=== PATIENT | female | born 1955 | race Caucasian/White ===

== ENCOUNTER 2017-05-24 10:05 | Outpatient (CLI) | payer BC ==
[2017-05-24 12:29] LABS: #Eosinphils 0.1 thou/uL (0.0-0.7); #Lymphocytes 3.8 thou/uL (1.20-3.40); #Monocytes 0.5 thou/uL (0.11-0.59); #Neutrophils 4.5 thou/uL (1.40-6.50); %Basophils 0.4 % (0.0-1.0); %Eosinophils 1.5 % (0.0-10.0); %Lymphocytes 42.6 % (21.0-51.0); %Monocytes 5.5 % (0.0-10.0); Hematocrit 43.4 % (36.0-47.0); Mean Platelet Volume 6.3 fL (7.4-10.4); Red Blood Cell (RBC) Count 4.57 mill/uL (4.20-5.40)
[2017-05-24 12:31] LABS: Bilirubin Negative (Negative); Blood, Urine Negative (Negative); Glucose, Urine (Dipstick) Negative (Negative); Ketone, Urine Negative (Negative); Nitrite Negative (Negative); Protein, Urine (Dipstick) Negative (Neg-Trace); Urobilinogen 0.2 mg/dL (0.2-1.0)
[2017-05-24 12:34] LABS: Bacteria/HPF None Seen HPF (None Seen); Hyaline Casts/LPF 0-3 HYALINE CAST LPF (0-3 Hyaline); RBC/HPF 0-3 HPF (0-3); Squamous Epithelial 0-3 HPF (0-3); WBC/HPF 0-3 HPF (0-3)
--- NOTE | 2017-05-24 15:43 | RAD ---
PA AND LATERAL VIEWS OF CHEST: Date: 05/24/17 HISTORY: Preoperative evaluation. FINDINGS: Comparison made with exam of 05/25/07. The heart size is borderline. The lungs are well expanded without focal areas of consolidation, pneu mothorax, or pleural effusions. There are mild degenerative changes in the spine. IMPRESSION: No radiographic evidence of acute cardiopulmonary process. POS: JOHANH
--- NOTE | 2017-05-24 16:49 | EKG ---
Test Reason : Blood Pressure : / mmHG Vent. Rate : 059 BPM Atrial Rate : 059 BPM P-R Int : 162 ms QRS Dur : 084 ms QT Int : 384 ms P-R-T Axes : 040 024 040 degrees QTc Int : 380 ms Sinus bradycardia Possible Anterior infarct , age undetermined Abnormal ECG No previous ECGs available Confirmed by DR. Anastasia GUPTA ([id number]) on 05/24/2017 4:49:31 PM Referred By: NEERU Confirmed By:DR. Anastasia GUPTA
== END 2017-05-24 10:06 | disposition home or self-care (01) ==
LOC: LABBT 10:05
PROVIDERS: ATTEND Orthopaedic Surgery Hand Surgery
DX: Z01.818 Encounter for other preprocedural examination (principal); M65.9 Synovitis and tenosynovitis, unspecified; M65.332 Trigger finger, left middle finger
CPT/HCPCS: 71020; 81001; 85025; 85652; 93005; 93010

== ENCOUNTER 2017-05-25 11:57 | Day surgery (SDC) | payer BC ==
[2017-05-24 10:36] VITALS: BMI 343.8
[2017-05-25] MEDS ORDERED: Fentanyl 100 MCG/2 ML VIAL ONE (14:50)
[2017-05-25] MEDS ORDERED: Midazolam HCl 2 mg/2 ml Vial ONE (14:50)
[2017-05-25] MEDS ORDERED: Betamet Acet/Betamet Na Ph 30 MG/5 ML VIAL ONE (14:55)
[2017-05-25] MEDS ORDERED: Bupivacaine PF 0.5% 30 ML VIAL ONE (14:55)
[2017-05-25] MEDS ORDERED: Sodium Chloride 0.9% 0 ML ONE (14:55)
[2017-05-25] MEDS ORDERED: Bacitracin Zinc Ointment 30 gm TUBE ONE (14:55)
[2017-05-25] MEDS ORDERED: CEFAZOLIN/Water 2 GM/20 ML SYRINGE ONE (15:17)
[2017-05-25] MEDS ORDERED: Propofol 200 MG/20 ML VIAL ONE (15:29)
[2017-05-25] MEDS ORDERED: Dexamethasone 20 MG/5 ML VIAL ONE (15:29)
[2017-05-25] MEDS ORDERED: Ondansetron HCl/PF 4 MG/2 ML Vial ONE (15:29)
[2017-05-25] MEDS ORDERED: Lidocaine 1% PF 5 ML VIAL ONE (15:29)
[2017-05-25] MEDS ORDERED: Ketorolac Tromethamine 30 MG/ML VIAL ONE (16:54)
--- NOTE | 2017-05-26 09:06 | OP ---
PREOPERATIVE DIAGNOSIS: Left middle finger, flexor tenosynovitis with very severe triggering. POSTOPERATIVE DIAGNOSES: 1. Very severe thick tenosynovitis, flexor digitorum profundus and flexor digitorum superficialis. 2. Tight A1 delicia. 3. Marked tenosynovitis and a separate incision site between the A2 and A3 delicia in the window of the flexor tendon sheath at this point. SURGEON: Byron Justice M.D. ANESTHESIA: General LMA technique, augmented by 10 mL of 0.5% Marcaine without epinephrine block pr oximal to the old incisions. Two separate incisions were made. The first incision to follow insertion to place; 1. At the hand level. A. Flexor digitorum profundus, radical flexor tenosynovectomy. B. Flexor digitorum superficialis, radical flexor tenosynovectomy. C. A1 delicia trigger release. 2. At the finger level of the left middle finger. A. Tendon sheath opened into tendon sheath irrigation. 3. Radical flexor tenosynovectomy, flexor digitorum profundus and radical flexor tenosynovectomy, f lexor digitorum superficialis. SPECIMEN: Marked amount of tenosynovial, very thick, sometime as much as 3 mm thick was removed and sent as specimen to the lab. The patient also has a history of connective tissue disease. DESCRIPTION OF PROCEDURE: After successful general LMA technique by Somali anesthesia, the limb w as prepped and draped. Timeout done appropriately and the listed procedure site was prepped, scrubb ed, and marked. We then exsanguinated the limb, inflated tourniquet to 250 mmHg pressure. Then, immediately made an injection in the palm with 10 mL of 0.5% Marcaine, 2 cm proximal to the most proximal aspect of the incision. This was carried through skin and subcutaneous tissue in a zig-zag fashion down to the l evel of 5 mm proximal to the palmar long finger MP joint crease. Here, we saw marked tenosynovium s welling and bulging out just proximal to the A1 delicia. The A1 delicia was released. There was jeaneth ed found underneath it. The patient's A1 delicia now released which gave even more tenosynovit is, so a radical flexor tenosynovectomy was performed involving the flexor digitorum superficialis a nd profundus at the level of the A1 delicia proximally in the first incision. The specimen sent to t he lab and the tendon was very thick over almost a 4 cm area. Next, we then made a separate incision distal to the A2 delicia and then carried through this skin an d subcutaneous tissue to reach the area where the A3 delicia was distal to A2 delicia. A small window was made in the tendon sheath, and there was marked tenosynovium swelling, and using flexion extens ion technique, was able to debride the tendon fully that was underneath the A2 delicia and A2 delicia remain intact. We now took a feeding tube catheter, and began sheath irrigation from proximal to distal of 25 mL, and then from distal to proximal of 25 mL using 10 mL at a time in syringe. Tourniquet was def lated. Hemostasis was obtained. Specimen sent to the lab. We gave Celestone 2 mL on both sides of the tendon where we have performed the procedures and then prepared for closure. After obtaining h emostasis, the area was closed. The wound was closed using interrupted 5-0 nylon in a simple patter n in the palm, in the dorsum of the hand. The patient then left the operating room in a bulky dress ing with no evidence of anesthetic or operative complication, and in the recovery room was able to f leslye the tendon and the finger without triggering.
== END 2017-05-25 18:20 | disposition home or self-care (01) ==
LOC: SDC 11:57
PROVIDERS: ATTEND Orthopaedic Surgery Hand Surgery
PROC: 0LT80ZZ Resection of Left Hand Tendon, Open Approach (ICD-10-PCS; principal; 2017-05-25)
DX: M65.332 Trigger finger, left middle finger (principal); E78.5 Hyperlipidemia, unspecified; L40.50 Arthropathic psoriasis, unspecified; Z79.899 Other long term (current) drug therapy; Z98.890 Other specified postprocedural states
CPT/HCPCS: 87070; 87205; 88304; 96374; A4216; J0702; J1100; J1885; J2001; J2250; J2405; J2704; J3010; S0020

== ENCOUNTER 2021-04-21 11:26 | Outpatient (CLI) | payer BC | END 2021-04-21 11:27 | disposition home or self-care (01) | LOC: BICMAMMO 11:26 | PROVIDERS: ATTEND Obstetrics & Gynecology | DX: Z12.31 Encounter for screening mammogram for malignant neoplasm of breast (principal) | CPT/HCPCS: 77063; 77067 ==

== ENCOUNTER 2022-04-03 11:49 | Outpatient (CLI) | payer BC | END 2022-04-03 11:50 | disposition home or self-care (01) | LOC: BICRAD 11:49 | PROVIDERS: ATTEND Internal Medicine Rheumatology | DX: M17.11 Unilateral primary osteoarthritis, right knee (principal) ==

== ENCOUNTER 2022-04-24 11:51 | Outpatient (CLI) | payer BC | END 2022-04-24 11:52 | disposition home or self-care (01) | LOC: BICMAMMO 11:51 | PROVIDERS: ATTEND Family Medicine | DX: Z12.31 Encounter for screening mammogram for malignant neoplasm of breast (principal) | CPT/HCPCS: 77063; 77067 ==

== ENCOUNTER 2023-06-18 11:34 | Outpatient (CLI) | payer BC | END 2023-06-18 11:35 | disposition home or self-care (01) | LOC: BICMAMMO 11:34 | PROVIDERS: ATTEND Family Medicine | DX: Z12.31 Encounter for screening mammogram for malignant neoplasm of breast (principal); Z80.3 Family history of malignant neoplasm of breast | CPT/HCPCS: 77063; 77067 ==

== ENCOUNTER 2024-07-11 14:36 | Outpatient (CLI) | payer BC | END 2024-07-11 14:37 | disposition home or self-care (01) | LOC: BICMAMMO 14:36 | PROVIDERS: ATTEND Family Medicine | DX: Z12.31 Encounter for screening mammogram for malignant neoplasm of breast (principal); M81.0 Age-related osteoporosis without current pathological fracture; M85.89 Other specified disorders of bone density and structure, multiple sites; N64.89 Other specified disorders of breast; Z80.3 Family history of malignant neoplasm of breast; R92.1 Mammographic calcification found on diagnostic imaging of breast | CPT/HCPCS: 77063; 77067; 77080 ==

== ENCOUNTER 2024-07-24 14:25 | Outpatient (CLI) | payer BC | END 2024-07-24 14:26 | disposition home or self-care (01) | LOC: BICMAMMO 14:25 | PROVIDERS: ATTEND Family Medicine | DX: N64.89 Other specified disorders of breast (principal) | CPT/HCPCS: G0279 ==